=== PATIENT | male | born 1960 | race Caucasian/White ===

== ENCOUNTER 2020-06-24 05:57 | Emergency (ER) | payer BC ==
[~2020-06-24] VITALS: Ht 177.8 cm; Wt 82.1 kg
--- NOTE | ~2020-06-24 | EMS ---
[address] [address] EMS Patient Care Report Name: MIGUEL ÁNGEL BROTHERS Room #: PRE M.R.#: [id number] Admission: Attend Phys: Discharge: Date of : 56 Report #: [id number] THIS REPORT FOR: //name// Report Transmitted: 06/24/2020 06:04 EMS Care Summary [facility] Incident [id number] @ 06/24/2020 05:01 Incident Location [address] [place] [address] Patient MIGUEL ÁNGEL BROTHERS Male, 59 Years 1960 Patient Address [address] [place] [address] Patient History Diabetes,Cardiac Condition - Other, Patient Allergies No known allergies, Patient Medications Levothyroxine, Chief Complaint "his blood sugar is low" Disposition Transported No Lights/[place] Dispatch Reason Diabetic Problem Transported To [facility] Narrative EMS dispatched to a local residence. Upon arrival, EMS is guided to the upstairs bedroom where the patient's laying in the supine position on his bed. The patient's not tracking, has no audible breath sounds but does appear pale and diaphoretic. The local fire department relays they are working on trying to [address] [address] EMS Patient Care Report Name: MIGUEL ÁNGEL BROTHERS Room #: ROSMERY Contreras#: [id number] Admission: Attend Phys: Discharge: Date of : 56 Report #: [id number] get a blood sugar, that he's a known diabetic and the last time he was seen normal was about 2200. The patient's relays the patient hasn't been sick, had no change in medication, and she doesn't believe he took an overdose of Insulin. In addition, she believes he did have "one glass of wine last night". Shortly after giving the patient D10, it's noted that when asked to perform the stroke assessment his speech is abnormal. First, his relays it's slurred and second, she relays he normally doesn't have that had of a time getting his words out. When speaking to the patient, he relays "I'm just frustrated" because he can't articulate some phrases. In addition, he relays he has a headache, that his left side face is slightly numb. Initial assessment is performed on pt by local fire department. The patient's Bg is evaluated. IV access is made and D10 is given for Hypoglycemia. Shortly after the patient becomes more alert a stroke assessment is performed on pt and it's noted his speech is significantly different than normal. The patient agrees to go to the hospital. At that time, he's able to ambulate with minor to no assistance to cot where secured. The patient is moved to MICU where secured. Secondary assessment is performed on pt with multiple stroke assessments, Stroke activation to [facility]. Vitals, Bg check and continuous assessment. Report is given to RN and . care is transferred without incident. Initial Vitals @05:22P: 58,SpO2: 97,DC Suspected: false @05:10P: 56,R: 16,BP: 159/71,Pain: 0/10,GCS: 7,Temp: 98.6F,Glucose: 24,SpO2: 98,Revised Trauma: 10, @05:19P: 44,R: 16,BP: 136/69,Pain: 0/10,GCS: 9,SpO2: 98,Revised Trauma: 11,DC Suspected: false @05:21P: 58,R: 16,BP: 133/72,Pain: 0/10,GCS: 14,Glucose: 158,SpO2: 98,Revised Trauma: 12,DC Suspected: false @05:54P: 59,R: 16,BP: 200/98,Pain: 0/10,GCS: 15,Glucose: 110,SpO2: 99,Revised Trauma: 12,DC Suspected: false Assessments @05:22MENTAL:Other,SKIN:Diaphoresis,Pale,HEENT:Head/Face: No Abnormalities,LUNG SOUNDS:General: No Abnormalities,ABDOMEN:General: No Abnormalities,PELVIS//GI:EXTREMITIES:Left Arm: No Abnormalities,Right Arm: No Abnormalities,Left Leg: No Abnormalities,Right Leg: No Abnormalities,PULSE:NEURO:Other,Slurred Speech,@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 Impression Diabetic Hypoglycemia Procedures @05:15Saline Lock 10cc (20 ga) Site: Antecubital-RightResponse: UnchangedSucceeded@05:2212-Lead ECGResponse: UnchangedSucceeded@05:16Dextrose [address] [address] EMS Patient Care Report Name: MIGUEL ÁNGEL BROTHERS Room #: PRE Diane#: [id number] Admission: Attend Phys: Discharge: Date of : 56 Report #: [id number] 10% - 250 Milliliters (ml) - Intravenous (IV)Response: Improved@05:42Surgical Mask on PatientResponse: Unchanged Timeline 05:00,Call Received 05:00,Psap Call 05:01,Dispatched 05:03,En Route 05:07,On Scene 05:09,At Patient 05:10,BP: 159/71 M,PULSE: 56,RR: 16 R,SPO2: 98 Ox,ETCO2: ,B,PAIN: 0,GCS: 7, 05:15,Saline Lock 10cc 20 ga Site: Antecubital-Right,Response: UnchangedSucceeded, 05:16,Dextrose 10% - 250 Milliliters (ml) - Intravenous (IV),Response: Improved 05:19,BP: 136/69 M,PULSE: 44,RR: 16 R,SPO2: 98 Ox,ETCO2: ,BG: ,PAIN: 0,GCS: 9, 05:21,BP: 133/72 M,PULSE: 58,RR: 16 R,SPO2: 98 Ox,ETCO2: ,B,PAIN: 0,GCS: 14, 05:22,12-Lead ECG,Response: UnchangedSucceeded, 05:22,BP: / M,PULSE: 58,RR: R,SPO2: 97 Ox,ETCO2: ,BG: ,PAIN: ,GCS: , 05:42,Surgical Mask on Patient,Response: Unchanged 05:46,Depart Scene 05:54,BP: 200/98 M,PULSE: 59,RR: 16 R,SPO2: 99 Ox,ETCO2: ,B,PAIN: 0,GCS: 15, 05:54,At Destination 06:23,Call Closed Disclaimer v1.1 Copyright 2020 [email or web address] This EMS Care Summary contains data elements from the applicable legal record (which may be displayed differently). It is designed to provide pertinent information for the following purposes: continuity of care, clinical quality, and state data reporting. The complete legal record is available to ED staff and administrators of the receiving hospital in ES's Patient Tracker. All data is provided "as is."
[2020-06-24 06:27] LABS: URINE BILIRUBIN NEGATIVE (Negative); URINE BLOOD NEGATIVE (Negative); URINE CLARITY CLEAR; URINE COLOR YELLOW; URINE GLUCOSE-RANDOM* NEGATIVE (Negative); URINE KETONES NEGATIVE (Negative); URINE NITRITE-REFLEX NEGATIVE (Negative); URINE PROTEIN (DIPSTICK) NEGATIVE (Negative); URINE UROBILINOGEN 0.2 E.U./dl (0.2-1.0)
[2020-06-24 06:28] LABS: URINE LEUKOCYTES-REFLEX NEGATIVE (Negative)
[2020-06-24 06:32] LABS: AMP/METHAMP Negative (Negative); BARBITURATES Negative (Negative); BENZODIAZEPINES Negative (Negative); COCAINE Negative (Negative); METHADONE Negative (Negative); OPIATES Negative (Negative); PCP Negative (Negative)
[2020-06-24 06:36] LABS: ABSOLUTE NEUTROPHILS 4.9 thou/uL (1.4-8.2); BASOPHILS 0.6 % (0.0-2.0); EOSINOPHILS 9.7 % (0.0-3.0); HEMATOCRIT 44.3 % (42.0-52.0); HEMOGLOBIN 14.9 gm/dL (14.0-18.0); LYMPHOCYTES 18.3 % (24.0-44.0); MCH 32.6 pg (26.0-34.0); MCHC 33.6 g/dL (28.0-37.0); MCV 97.2 fL (80.0-100.0); MONOCYTES 9.6 % (1.0-8.0); PLATELET COUNT 170 thou/uL (150-400); POLYS 61.8 % (36.0-66.0); RBC 4.56 mil/uL (4.50-6.00); RDW 12.5 % (10.5-14.5); WBC 7.9 thou/uL (4.0-11.0)
[2020-06-24 06:48] LABS: ANION GAP 8 mmol/L (7-16); BUN 15 mg/dL (7-18); CALCIUM 8.7 mg/dL (8.5-10.1); CHLORIDE 102 mmol/L (98-107); CO2 29 mmol/L (21-32); GLUCOSE 104 mg/dL (74-106); POTASSIUM 4.2 mmol/L (3.5-5.1); SODIUM 139 mmol/L (136-145)
[2020-06-24 06:50] LABS: APTT 22.4 Seconds (24.5-32.8); INR 1.1; PROTIME 10.8 Seconds (9.3-11.4)
[2020-06-24 06:53] LABS: ALBUMIN 3.4 g/dL (3.4-5.0); MAGNESIUM 1.9 mg/dL (1.8-2.4); SGOT 24 U/L (15-37); SGPT 18 U/L (30-65); TOTAL BILIRUBIN 0.7 mg/dL (0.2-1.0); TOTAL PROTEIN 6.8 g/dL (6.4-8.2); TROPONIN-I <0.06 ng/mL (<0.06)
[2020-06-24] MEDS ORDERED: HUMULIN N100 UNIT/1 SUBQ (06:57)
[2020-06-24] MEDS ORDERED: LEVO-T100 MCG PO (06:58)
[2020-06-24] MEDS ORDERED: NOVOLOG100 UNIT/1 SUBQ (06:58)
[2020-06-24] MEDS ORDERED: BENAZEPRIL 10 M10 MG PO (06:59)
[2020-06-24] MEDS ORDERED: ASA81BEC PO (06:59)
[2020-06-24 09:11] VITALS: BP 160/84
--- NOTE | 2020-06-28 07:24 | EKG ---
[facility] [place] [address] ELECTROCARDIOGRAM REPORT Name: MIGUEL ÁNGEL BROTHERS Room #: [facility].#: [id number] Admission: 06/24/20 Attend Phys: Discharge: 06/24/20 Date of : 56 Report #: [id number] THIS REPORT FOR: cc: Vishal Figueroa MD, Michael L. 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
== END 2020-06-24 09:13 | disposition home or self-care (01) ==
LOC: ER 05:57
PROVIDERS: Emergency Medicine
DX: E10.649 Type 1 diabetes mellitus with hypoglycemia without coma (principal); R41.82 Altered mental status, unspecified; R47.81 Slurred speech; Z79.899 Other long term (current) drug therapy; Z79.4 Long term (current) use of insulin; Z79.82 Long term (current) use of aspirin